=== PATIENT | male | born 1940 | race Caucasian/White ===

== ENCOUNTER 2016-06-16 08:03 | Emergency (ER) | payer MEDICARE, OTHER ==
[~2016-06-16] VITALS: Ht 177.8 cm; Wt 76.0 kg
[~2016-06-16 08:03] MED LIST: AMBI5TAB PO; AMLO10 PO; CARB25TA9 PO; DOCU1CAP39 PO; DULO1CAP3 PO; MULT1TAB85 PO; QUET1TAB7 PO; TAMS5CAP PO; TRAZ50TA12 PO
[2016-06-16 08:10] VITALS: BP 201/99; PULSE 95; RESP 15; TEMP 98.8; O2SAT 98
--- NOTE | 2016-06-16 08:18 | PD ---
HPI Chief Complaint: Fall Time Seen by Provider: 08:15 Travel History International Travel<30 days: No Contact w/Intl Traveler<30days: No Traveled to known affect area: No History of Present Illness HPI Patient 75-year-old male [facility] after slip and fall. Patient states that he got up to go the bathroom and then on the walk back from having a bowel movement he tripped unsure over what and felt like ground impacting his head on what EMS describes as a dresser in the room.. Review the records show the patient was here in April for a subdural hematoma. He did have a tetanus shot at that time. Patient has no complaints currently. He denies any single episode denies any chest pain shortness of breath or abdominal pain. His only complaint is laceration to his forehead and some pain over the small of his back which she states is chronic for him. Does not complain of any wrist pain. Patient also has a history of Parkinsonian his him, review of his records show that he is not on any blood thinners. PFSH Past Medical History Arthritis: Yes Autoimmune Disease: No Anxiety: Yes Depression: Yes Cancer: No Cardiovascular Problems: Yes Diminished Hearing: No (Denies) Endocrine: No Gastrointestinal Disorders: Yes Genitourinary: Yes Immune Disorder: No Musculoskeletal: Yes Neurologic: Yes Psychiatric: Yes Reproductive: No Respiratory: No Past Surgical History Abdominal Surgery: No Cardiac Surgery: No Ear Surgery: No Endocrine Surgery: No Eye Surgery: No Genitourinary Surgery: No Gynecologic Surgery: No Oral Surgery: No Thoracic Surgery: No Other Surgery: Yes (see psych admission) Social History Alcohol Use: No Tobacco Use: No Substance Use: No Allergies-Medications (Allergen,Severity, Reaction): Coded Allergies: Penicillin (Unverified Allergy, Unknown, 05/07/16) Per pt and biological daughter - Amanda Morse [phone]. Reported Meds & Prescriptions Reported Meds & Active Scripts Active Ambien (Zolpidem Tartrate) 5 Mg Tab 5 Mg PO HS PRN Flomax (Tamsulosin HCl) 0.4 Mg Cap 0.4 Mg PO DAILY Quetiapine (Quetiapine Fumarate) 25 Mg Tab 12.5 Mg PO BID PRN Dok (Docusate Sodium) 100 Mg Cap 100 Mg PO BID Carbidopa-Levodopa 25-100 Mg Tab 1 Tab PO Q8HR Norvasc (Amlodipine Besylate) 10 Mg Tab 10 Mg PO DAILY Reported Multivitamin Men (Multiple Vitamins W/ Minerals) 1 Tab Tab 1 Tab PO DAILY Duloxetine DR (Duloxetine HCl) 60 Mg Capdr 60 Mg PO DAILY Trazodone (Trazodone HCl) 50 Mg Tab 50 Mg PO DAILY Review of Systems Except as stated in HPI: all other systems reviewed are Neg Physical Exam Narrative GENERAL: Well-developed well-nourished in no apparent distress SKIN: Warm and dry. HEAD: No valles signs no raccoons eyes no hemotympanum, there is a 47 m laceration running in a vertical fashion in the mid line of his forehead.. Normocephalic. EYES: Pupils equal and round. No scleral icterus. No injection or drainage. ENT: No nasal bleeding or discharge. Mucous membranes pink and moist. NECK: Trachea midline. No JVD. CARDIOVASCULAR: Regular rate and rhythm. No murmur appreciated. RESPIRATORY: No accessory muscle use. Clear to auscultation. Breath sounds equal bilaterally. GASTROINTESTINAL: Abdomen soft, non-tender, nondistended. Hepatic and splenic margins not palpable. MUSCULOSKELETAL: No obvious deformities. No clubbing. No cyanosis. No edema. No tenderness of bilateral shoulders bilateral elbows bilateral wrists hips knees or ankles. NEUROLOGICAL: Awake and alert. Cranial nerves II through XII are grossly intact and nonfocal, 5 out of 5 strength all for extremities, awake and alert and oriented. PSYCHIATRIC: Appropriate mood and affect; insight and judgment normal. 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 No concerning acute ST T changes. Comparison to 05/10/2016 shows no change. Differential Diagnosis Frequent falls, closed head injury, history of subdural hematoma, laceration Narrative Course Last [address] 06/16/16 0000 Signed Impressions: Service Date/Time: Thursday, June 16, 2016 09:08 - CONCLUSION: Normal examination except for small right frontal subcutaneous hematoma. Jaylon Reid MD Patient appears well and apparent distress his wound was reapproximated. He does have a history of Parkinson's disease and is likely contributing to his recurrent falls. However he is stable for discharge back to the nursing facility at this time. Diagnosis Primary Impression: Head injury Qualified Code: S09.90XA - Head injury, initial encounter Additional Impression: Facial laceration Patient Instructions: Fall Prevention (DC), General Instructions Additional Instructions: Return to emergency department in 7-10 days for suture removal. Disposition: 01 DISCHARGE HOME Condition: Stable Pawel Hardin MD Jun 16, 2016 08:18
[2016-06-16 08:21] VITALS: BP 182/88; PULSE 104; RESP 15; O2SAT 98
[2016-06-16] MEDS ORDERED: LIDOCAINE HCL 1% 50 ML VIAL INFIL ONE (08:30)
[2016-06-16 09:00] VITALS: BP 180/87; PULSE 90; RESP 15; O2SAT 98
--- NOTE | 2016-06-16 09:23 | PD ---
Physical Exam Date Seen by Provider: Jun 16, 2016 Narrative For full history and physical examination please see previous provider's note. I was asked to repair laceration to patient's forehead. Data Data Last Documented VS Vital Signs Date Time Temp Pulse Resp B/P Pulse Ox O2 Delivery O2 Flow Rate FiO2 06/16/16 08:21 104 15 182/88 98 Room Air 06/16/16 08:[address] Brain W/O Iv Contrast(Rout) (06/16/16 ) Ct Cerv Spine W/O Contrast (06/16/16 ) Electrocardiogram (06/16/16 ) Lidocaine 1% Inj (50 Ml) (Xylocaine 1% I (06/16/16 08:30) MDM Medical Record Reviewed: Yes Supervised Visit with SERENA: Yes Procedures Procedure Narrative LACERATION LOCATION: Mid forehead LENGTH: 1.5 inches NUMBER OF STITCHES/PERLA: 9 stitches REPAIR: The area of the laceration was prepped with Betadine and sterilely draped. The laceration was infiltrated with 1% lidocaine. The wound was copiously irrigated and explored without evidence of foreign body, tendon injury or neurovascular injury. The wound was closed using 4-0 Prolene. This was a 1 layer repair. A sterile dressing was applied. The patient was advised to keep the dressing clean and dry. Patient tolerated the procedure well. LACERATION LOCATION: Right forehead LENGTH: 1 CM NUMBER OF STITCHES/PERLA: 2 stitches REPAIR: The area of the laceration was prepped with Betadine and sterilely draped. The laceration was infiltrated with 1% lidocaine. The wound was copiously irrigated and explored without evidence of foreign body, tendon injury or neurovascular injury. The wound was closed using 4-0 Prolene. This was a 1 layer repair. A sterile dressing was applied. The patient was advised to keep the dressing clean and dry. Patient tolerated the procedure well. Kori Lan Jun 16, 2016 09:23
--- NOTE | 2016-06-16 09:34 | RADRPT ---
EXAM DATE/TIME: 06/16/2016 09:08 [facility] COMPARISON: CT BRAIN W/O CONTRAST, May 07, 2016, 9:45. INDICATIONS : Trauma. Slip and fell and hit head on dresser. Laceration on forehead. RADIATION DOSE: 56.35 CTDIvol (mGy) MEDICAL HISTORY : Cardiovascular disease. Subdural hematoma. SURGICAL HISTORY : None. ENCOUNTER: Initial ACUITY: 1 day PAIN SCALE: 7/10 LOCATION: cranial TECHNIQUE: Multiple contiguous axial images were obtained of the head. Using automated exposure control and adj ustment of the mA and/or kV according to patient size, radiation dose was kept as low as reasonably a chievable to obtain optimal diagnostic quality images. FINDINGS: CEREBRUM: The ventricles are normal for age. No evidence of midline shift, mass lesion, hemorrhage or acute in farction. No extra-axial fluid collections are seen. POSTERIOR FOSSA: The cerebellum and brainstem are intact. The 4th ventricle is midline. The cerebellopontine angle i s unremarkable. EXTRACRANIAL: The visualized portion of the orbits is intact. SKULL: The calvaria is intact. No evidence of skull fracture. CONCLUSION: Normal examination except for small right frontal subcutaneous hematoma. Jaylon Reid MD on June 16, 2016 at 9:31 Board Certified Radiologist. This report was verified electronically.
--- NOTE | 2016-06-16 10:29 | RADRPT ---
EXAM DATE/TIME: 06/16/2016 09:10 [facility] COMPARISON: Prior study 04/29/2016. INDICATIONS : Trauma. Neck pain. Slip and fell and hit head on dresser. Laceration on forehead. RADIATION DOSE: 38.46 CTDIvol (mGy) MEDICAL HISTORY : Cardiovascular disease. Subdural hematoma. SURGICAL HISTORY : None. ENCOUNTER: Initial ACUITY: 1 day PAIN SCALE: 6/10 LOCATION: Neck TECHNIQUE: Volumetric scanning of the cervical spine was performed. Multiplanar reconstructions in the sagittal, coronal and oblique axial planes were performed. Using automated exposure control and adjustment o f the mA and/or kV according to patient size, radiation dose was kept as low as reasonably achievable to obtain optimal diagnostic quality images. FINDINGS: CT scan demonstrates the patient has had previous fusion from C4 to C6. There is a fibular strut gra ft in place with a prominent kyphosis. The bony canal is narrowed posterior to the C4-C5 disc space stable from the previous study. No endplate fracture is identified. There is a pronounced leftward scoliosis. The facet joints are well aligned and mostly fused bilaterally. No endplate fracture is identified. There is degenerative facet disease left side at C2-C3 and right side at C3-C4. No epid ural hematoma is identified. The lower cervical spine is unremarkable. CONCLUSION: Status post fusion with a prominent kyphosis and a spinal stenosis at the C4-C5 level. No endplate f racture or interval change since April 2016 is noted. Certainly, no acute fracture. Jaylon Reid MD on June 16, 2016 at 9:36 Board Certified Radiologist. This report was verified electronically.
[2016-06-16 13:22] VITALS: BP 179/89
--- NOTE | 2016-06-16 13:45 | EKG ---
Date Performed: 06/16/2016 Time Performed: 08:22:39 PTAGE: 75 years EKG: Sinus rhythm POSSIBLE LEFT ATRIAL ENLARGEMENT RIGHT BUNDLE BRANCH BLOCK LEFT ANTERIOR FASCICULAR BLOCK POSSIBLE L EFT VENTRICULAR HYPERTROPHY ABNORMAL ECG Compared to prior tracing no significant change PREVIOUS TRACING : 05/10/2016 20.59 DOCTOR: Doreen Mora Interpretating Date/Time 06/16/2016 13:43:22
== END 2016-06-16 13:24 | disposition home or self-care (01) ==
LOC: NEPE 08:03
DX: S01.81XA Laceration without foreign body of other part of head, initial encounter (principal); R29.6 Repeated falls; G20 Parkinson's disease; R94.31 Abnormal electrocardiogram [ECG] [EKG]; W01.190A Fall on same level from slipping, tripping and stumbling with subsequent striking against furniture, initial encounter; Y93.01 Activity, walking, marching and hiking; Y92.129 Unspecified place in nursing home as the place of occurrence of the external cause
CPT/HCPCS: 12011; 70450; 72125; 93005